=== PATIENT | female | born 1965 | race Caucasian/White ===

== ENCOUNTER 2016-12-21 18:26 | Emergency (ER) | payer MEDICAID ==
--- NOTE | 2016-12-21 19:01 | ER NURSING DOCUMENTATION ---
Nurse's Notes [facility] Name:Erin Galarza Age:51 yrs Sex:Female :1965 Arrival Date:12/21/2016 Time:18:26 Bed5 Private MD:Sukhi Sánchez Diagnosis:Spider Bite Presentation: 12/21 18:38 Presenting complaint: Patient states: she felt an insect bite her behind right ear and sc1 right cheek area just [employer]. No swelling are redness noted in the areas that she states were bitten. Transition of care: Home. Notified ED Physician of patient's arrival and CC Dr. Vallejo notified. 18:38 Acuity: ZACHARY 4 sc1 18:38 Method Of Arrival: Private Vehicle ca1 Triage Assessment: 18:46 Bite description: bite sustained to behind right ear and right cheek by a spider, ca1 animal information:. General: Appears in no apparent distress, well developed, well nourished, well groomed, Behavior is cooperative, pleasant. Pain: Denies pain. Historical: - Allergies: No known drug Allergies; - Home Meds: 1. nortriptyline Oral 2. sertraline oral 3. levothyroxine oral - PMHx: None; - PSHx: Hysterectomy; ; THYROIDECTOMY; KNEE SURGERY; - Ebola Screening: : Patient negative for fever greater than or equal to 101.5 degrees Fahrenheit, and additional compatible Ebola Virus Disease symptoms. Patient denies exposure to infectious person. Patient denies travel to an Ebola-affected area in the 21 days before illness onset. No symptoms or risks identified at this time. . - Immunization history: Flu Vaccine None. - Social history: Smoking status: Patient uses tobacco products, current every day smoker. Patient uses marijuana Patient/guardian denies using alcohol, street drugs, IV drugs. Screenin:47 Infectious Disease Risk None. Abuse screen: Denies threats or abuse. Nutritional sc1 screening: No deficits noted. Vital Signs: 18:46 BP 132 / 88; Pulse 79; Resp 16; Temp 98.4; Pulse Ox 97% on R/A; ca1 ED Course: 18:30 Patient arrived in ED. ama 18:31 Princess, Provider is Private Physician. ama 18:33 Cristian Vallejo MD is Attending Physician. sc 18:38 Tamy Ruelas, RN is Primary Nurse. [facility] 18:43 Triage completed. [facility] [place] 18:47 Notified ED Physician of patient's arrival and chief complaint. Dr. Vallejo notified. Arm [facility] band placed on Bed in low position Call Light in Reach HOB Elevated. 18:55 Princess, Provider is Referral Physician. ca Administered Medications: No medications were administered Outcome: 18:55 Discharge ordered by . ca 19:00 Discharged to home ambulatory. [facility] [place] 19:00 Condition: stable 19:00 Discharge instructions given to patient, Instructed on discharge instructions, follow up and referral plans. Demonstrated understanding of instructions. 19:00 Patient left the ED. [facility] [id number] 17:14 Discharge F/U Call: Unable to reach: left voicemail: [email or web address] Signatures: Tamy Ruelas RN RN [facility] Cristian Vallejo MD MD sc Averdick, Andrew, Tessie Sauceda [id number]
--- NOTE | 2016-12-21 19:01 | ER PHYSICIAN DOCUMENTATION ---
Physician Documentation [facility] Name:Erin Galarza Age:51 yrs Sex:Female :1965 Arrival Date:12/21/2016 Time:18:26 Bed5 Private MD:Princess, Provider ED Yoni Cristian Disposition: 12/21/16 18:55 Discharged to Home/Self Care. Impression: Spider Bite. - Condition is Good. - Discharge Instructions: SPIDER BITE, Non-Poisonous. - Medical Reconciliation form form. - Follow up: Princess Provider; When: 1 week; Reason: Recheck today's complaints, Continuance of care. - Problem is new. - Symptoms have improved. HPI: 12/21 18:54 This 51 yrs old Female presents to ER via Private Vehicle with complaints of sc Insect Bite - FACE. 18:56 The patient was bitten on the face. Onset: The symptom(s)/episode began/occurred today. sc Animal information: saw small white spider on face and brief burning sensation. Infection risk factors: No risk factors present. Associated signs and symptoms: Pertinent positives: tenderness. Historical: - Allergies: No known drug Allergies; - Home Meds: 1. nortriptyline Oral 2. sertraline oral 3. levothyroxine oral - PMHx: None; - PSHx: Hysterectomy; ; THYROIDECTOMY; KNEE SURGERY; - Ebola Screening: : Patient negative for fever greater than or equal to 101.5 degrees Fahrenheit, and additional compatible Ebola Virus Disease symptoms. Patient denies exposure to infectious person. Patient denies travel to an Ebola-affected area in the 21 days before illness onset. No symptoms or risks identified at this time. . - Immunization history: Flu Vaccine None. - Social history: Smoking status: Patient uses tobacco products, current every day smoker. Patient uses marijuana Patient/guardian denies using alcohol, street drugs, IV drugs. ROS: 18:57 Constitutional: Negative for fever, chills, and weight loss. sc Eyes: Negative for injury, pain, redness, and discharge. Neck: Negative for injury, pain, and swelling. Cardiovascular: Negative for chest pain, palpitations, and edema. Respiratory: Negative for shortness of breath, cough, wheezing, and pleuritic chest pain. Back: Negative for injury and pain. MS/Extremity: Negative for injury and deformity. 18:57 Neuro: Negative for headache, weakness, numbness, tingling, and seizure. id 18:57 Skin: Positive for bite from spider, no fang carranza seen, no erythema, no retained parts. Exam: Constitutional: This is a well developed, well nourished patient who is awake, alert, and in no acute distress. Head/Face: Normocephalic, atraumatic. Eyes: Pupils equal round and reactive to light, extra-ocular motions intact. Lids and lashes normal. Conjunctiva and sclera are non-icteric and not injected. Cornea within normal limits. Periorbital areas with no swelling, redness, or edema. ENT: Nares patent. No nasal discharge, no septal abnormalities noted. Tympanic membranes are normal and external auditory canals are clear. Oropharynx with no redness, swelling, or masses, exudates, or evidence of obstruction, uvula midline. Mucous membranes moist. Neck: Trachea midline, no thyromegaly or masses palpated, and no cervical lymphadenopathy. Supple, full range of motion without nuchal rigidity, or vertebral point tenderness. No meningismus. Chest/axilla: Normal chest wall appearance and motion. Nontender with no deformity. No lesions are appreciated. 18:58 Back: No spinal tenderness. No costovertebral tenderness. Full range of motion. sc 18:58 Skin: Exam negative for acute changes, Appearance: Color: normal in color, pink. Vital Signs: 18:46 BP 132 / 88; Pulse 79; Resp 16; Temp 98.4; Pulse Ox 97% on R/A; sc1 MDM: 18:33 Patient medically screened. id 18:58 Differential diagnosis: hobo spider vs other. Rabies Status: Rabies immunization is not sc indicated. Data reviewed: vital signs, nurses notes, and as a result, I will discharge patient. Dispensed Medications: No medications were administered Signatures: Tamy Ruelas RN RN sc1 Cristian Vallejo MD MD sc
== END 2016-12-21 19:01 | disposition home or self-care (01) ==
LOC: ER 18:26
DX: S00.86XA Insect bite (nonvenomous) of other part of head, initial encounter (principal); W57.XXXA Bitten or stung by nonvenomous insect and other nonvenomous arthropods, initial encounter; Z79.899 Other long term (current) drug therapy; F17.210 Nicotine dependence, cigarettes, uncomplicated
CPT/HCPCS: 99281